=== PATIENT | male | born 1995 ===

== ENCOUNTER → 2021-11-04 | Outpatient (REF) | payer SELFPAY ==
[2021-11-04 13:40] LABS: SEMEN APPEARANCE OPAQUE (OPAQUE); SEMEN VISCOSITY VISCOUS (LIQUID); SEMEN VOLUME 1.2 ML (2.0-5.0); SEMEN WBC >1 M/ml (<=1 M/ml); SEMEN pH 8.5 (7.0-8.0)
== END ==
LOC: M LAB REF 13:09
PROVIDERS: ATTEND Physician Assistant
DX: N46.9 Male infertility, unspecified (principal)